=== PATIENT | female | born 1955 | race Caucasian/White ===

== ENCOUNTER 2017-03-25 10:09 | Emergency (ER) | payer OTHER ==
[~2017-03-25] VITALS: Ht 157.5 cm; Wt 52.6 kg
[2017-03-25 11:08] LABS: BLOOD UREA NITROGEN 23 mg/dL (7-18)
[2017-03-25 11:12] LABS: IS PT STATUS REG ER OR PRE ER? YES
[2017-03-25 16:18] VITALS: BP 165/75
== END 2017-03-25 16:22 | disposition home or self-care (01) ==
LOC: ED 13:58
DX: S06.9X1A Unspecified intracranial injury with loss of consciousness of 30 minutes or less, initial encounter (principal); H66.001 Acute suppurative otitis media without spontaneous rupture of ear drum, right ear; E11.9 Type 2 diabetes mellitus without complications; I10 Essential (primary) hypertension; Z87.891 Personal history of nicotine dependence; Z79.899 Other long term (current) drug therapy; W19.XXXA Unspecified fall, initial encounter; Y93.89 Activity, other specified; Y99.8 Other external cause status; Y92.89 Other specified places as the place of occurrence of the external cause
CPT/HCPCS: 36415; 70450; 71020; 80048; 82040; 84484; 85025; 93005; 99285

== ENCOUNTER 2021-07-08 11:39 | Inpatient (IN) | payer MEDICARE, OTHER ==
[~2021-07-08] VITALS: Ht 157.5 cm; Wt 50.6 kg
[~2021-07-08 11:39] MED LIST: ASPI-963 PO; CLOP75TA PO; DENO60DI INJ; EMPA1TAB19 PO; ESCI10TA97 PO; FENO135C4 PO; IRBE300T8 PO; LAMO100T63 PO; MULT-658 PO; NIFE-7 PO; PRAS50CA PO; SIMV20TA19 PO; SIMV40TA20 PO
--- NOTE | 2021-07-08 13:03 | NUR ---
staff scientist note: Repeat VS taken, no change in pt condition. Pt's VSS.
[2021-07-08] MEDS ORDERED: SODIUM CHLORIDE FLUSH 10ML SYR IVF ONE (13:30)
--- NOTE | 2021-07-08 13:37 | NUR ---
DIRECTOR OF RETAIL MARKETING: PT TO ROOM FROM LOBBY
[2021-07-08 13:47] LABS: BASOPHILS % (AUTO) 1 % (0-1); EOSINOPHILS % (AUTO) 0 % (1-7); LYMPHOCYTES % (AUTO) 11 % (22-44); MEAN CORPUSCULAR HEMOGLOBIN 30.8 pg (27.0-34.8); MEAN CORPUSCULAR HGB CONC 33.2 g/dL (32.4-35.8); MEAN PLATELET VOLUME 8.8 fL (7.4-10.4); MONOCYTES % (AUTO) 6 % (2-9); NEUTROPHILS % (AUTO) 81 % (42-75); PLATELET COUNT 276 x10^3/uL (130-400); RED BLOOD COUNT 4.91 x10^6/uL (3.82-5.3); RED CELL DISTRIBUTION WIDTH 13.2 % (9.6-15.2)
[2021-07-08 13:48] LABS: CHLORIDE 107 mmol/L (98-107)
[2021-07-08 13:59] LABS: ALANINE AMINOTRANSFERASE 17 U/L (12-78); ALBUMIN 3.9 g/dL (3.4-5.0); ALKALINE PHOSPHATASE 46 U/L (45-117); ANION GAP 8 mmol/L (5-15); BILIRUBIN,TOTAL 0.5 mg/dL (0.2-1.0); CALCIUM 9.3 mg/dL (8.5-10.1); CREATININE 1.94 mg/dL (0.55-1.02); TOTAL PROTEIN 7.6 g/dL (6.4-8.2)
--- NOTE | 2021-07-08 14:00 | NUR ---
CONTACT WITH PT, 66 YR OLD FEMALE HERE WITH C/O "CRAMPING PAUL LEGS" HAD PLAQUE REMOVAL IN MAY HAS WELL HEALED SCAR IN LEFT GROIN. IV PLACED. CT TO BE NOTIFIED OF PLACEMENT. PT PROVIDED WITH WARM BLANKET. NO OTHER NEEDS EXPRESSED AT THIS TIME.
--- NOTE | 2021-07-08 14:11 | NUR ---
DR SALDAÑA AT BEDSIDE TO RAQUEL PT
--- NOTE | 2021-07-08 15:05 | NUR ---
PT TO CT
[2021-07-08] MEDS ORDERED: OMNIPAQUE 350 MG/ML, 100ML BOTTLE ONE (15:29)
--- NOTE | 2021-07-08 15:35 | NUR ---
IV FLUIDS INFUSING ORDERED. NO ACUTE DISTRESS NOTED. PTS AT BEDSIDE. AWAITING TEST RESULTS. NO NEEDS EXPRESSED AT THIS TIME.
[2021-07-08] MEDS ORDERED: SODIUM CHLORIDE 0.9% 1,000ML IVBOLUS ONE (16:00)
[2021-07-08] MEDS ORDERED: SODIUM CHLORIDE 0.9% 1,000 ML IV ONE ×2 (16:00→17:30)
--- NOTE | 2021-07-08 16:22 | NUR ---
DR STREETER AT BEDSIDE TO EVAL PT
--- NOTE | 2021-07-08 17:02 | NUR ---
EKG IN PROCESS. NO CHANGE IN PT CONDITION NOTED.
[2021-07-08] MEDS ORDERED: ASPIRIN 81 MG TABLET CHEW ONE (17:06)
--- NOTE | 2021-07-08 17:21 | NUR ---
PT AMB TO BR, GAIT STEADY. IV FLUIDS STARTED ORDERED. PT SWABBED FOR PCR COVID AND WALKED TO LAB. PT AND PTS HUSBANAD AWARE OF TO BE INPATIENT. NO NEEDS A THIS TIME.
[2021-07-08] MEDS ORDERED: HEPARIN 5,000 UNITS/ML, 1ML IV ONE (17:30)
[2021-07-08] MEDS ORDERED: [UNRECOGNIZED DRUG - OTHER] PO (17:30)
[2021-07-08] MEDS ORDERED: HEPARIN 25,000 UNITS/250ML PMX 250 ML IV PRN (17:30)
[2021-07-08] MEDS ORDERED: HEPARIN 5,000 UNITS/ML, 1ML IV PRN (17:30)
[2021-07-08] MEDS ORDERED: SODIUM CHLORIDE FLUSH 10ML SYR IVF PRN (17:30)
[2021-07-08] MEDS ORDERED: HEPARIN 25,000 UNITS/250ML PMX 250 ML ONE (17:40)
[2021-07-08] MEDS ORDERED: HEPARIN 5,000 UNITS/ML, 1ML ONE (17:40)
--- NOTE | 2021-07-08 17:55 | NUR ---
IV HEPARIN STARTE ORDERED. PT EDUCATED ON HEPARIN, RISK OF BLEEDING AND BLOOD DRAWS. UNDERSTANDING VERBALIZED.
[2021-07-08] MEDS ORDERED: ASPIRIN 81 MG TABLET CHEW PO ONE (18:00)
--- NOTE | 2021-07-08 18:32 | NUR ---
ATTEMPT TO CALL REPORT, FLOOR RN TO RETURN CALL
--- NOTE | 2021-07-08 19:18 | NUR ---
REPORT TO PAM MCKEON
--- NOTE | 2021-07-08 19:55 | NUR ---
PT RESTING COMFORTABLY, AND PTS HAS ARRIVED WITH FOOD FOR THE PT. PT TO BE ADMITTED UPSTAIRS, BUT THE ROOM REMAINS DIRTY AT THIS TIME. RECEIVED ROOM AT 1816 TIME. PT EATING WITHOUT ISSUE AND SAYS SHE FEELS BETTER. PIV X2 INTACT, NO SWELLING, REDNESS AND IS SECURE.
[2021-07-08] MEDS ORDERED: DOCUSATE 100 MG CAPSULE PO PRN (20:30)
[2021-07-08] MEDS ORDERED: LIDODERM 5% PATCH TD PRN (20:30)
[2021-07-08] MEDS ORDERED: MELATONIN 5 MG TABLET PO PRN (20:30)
[2021-07-08] MEDS ORDERED: ACETAMINOPHEN 325 MG TABLET PO PRN (20:30)
[2021-07-08] MEDS ORDERED: HYDROcodone/APAP 5/325 TABLET PO PRN (20:30)
[2021-07-08] MEDS ORDERED: ONDANSETRON 2MG/ML, 2ML IVPush PRN (20:30)
[2021-07-08 21:10] VITALS: BP 149/81
--- NOTE | 2021-07-08 21:17 | NUR ---
REPORT AND CARE TO FLOOR RN AND PT TRANSPORTED TO FLOOR ON MONITOR WITH TECH AT BEDSIDE. IV SITES X2 INTACT, NO REDNESS OR SWELLING NOTED. REPORT AND CARE TO DARIUS MCKEON.
[2021-07-09] MEDS ORDERED: SIMVASTATIN 40 MG TABLET PO SCH
[2021-07-09] MEDS ORDERED: FENOFIBRATE 145 MG TABLET PO SCH
[2021-07-09] MEDS ORDERED: IRBESARTAN 300 MG TABLET PO SCH
[2021-07-09 01:41] VITALS: BP 130/79
[2021-07-09] MEDS: INSULIN LISPRO 100 UNITS/ML, PEN SQ-INSULIN SCH ×3 (06:49→16:13)
[2021-07-09 07:35] VITALS: BP 160/76
[2021-07-09 07:35] LABS: BASOPHILS % (AUTO) 1 % (0-1); EOSINOPHILS % (AUTO) 1 % (1-7); LYMPHOCYTES % (AUTO) 18 % (22-44); MEAN CORPUSCULAR HEMOGLOBIN 31.9 pg (27.0-34.8); MEAN CORPUSCULAR HGB CONC 34.1 g/dL (32.4-35.8); MEAN PLATELET VOLUME 9.1 fL (7.4-10.4); MONOCYTES % (AUTO) 7 % (2-9); NEUTROPHILS % (AUTO) 73 % (42-75); PLATELET COUNT 210 x10^3/uL (130-400); RED BLOOD COUNT 4.45 x10^6/uL (3.82-5.3); RED CELL DISTRIBUTION WIDTH 13.3 % (9.6-15.2)
[2021-07-09 07:37] LABS: CHLORIDE 110 mmol/L (98-107)
[2021-07-09 07:42] LABS: ANION GAP 7 mmol/L (5-15); CALCIUM 8.6 mg/dL (8.5-10.1); CREATININE 1.25 mg/dL (0.55-1.02)
[2021-07-09 07:43] LABS: INTERNATIONAL NORMALIZED RATIO 1.03 (0.93-1.1)
[2021-07-09] MEDS ORDERED: ESCITALOPRAM 10MG TABLET PO SCH (09:00)
[2021-07-09] MEDS ORDERED: MULTIVITAMIN 1 TABLET PO SCH (09:00)
[2021-07-09] MEDS ORDERED: CLOPIDOGREL 75 MG TABLET PO SCH (09:00)
[2021-07-09] MEDS ORDERED: LAMOTRIGINE 100 MG TABLET PO SCH (09:00)
[2021-07-09] MEDS ORDERED: niFEDipine ER 30 MG TABLET.ER PO SCH (09:00)
[2021-07-09] MEDS ORDERED: ASPIRIN 81 MG TABLET EC PO SCH (09:00)
[2021-07-09 12:50] VITALS: BP 127/77
[2021-07-09] MEDS ORDERED: ENOX60SY4 SC (15:45)
[2021-07-09 16:37] VITALS: BP 149/67
== END 2021-07-09 16:54 | disposition home or self-care (01) | DRG 299 ==
LOC: ED 17:30 → EDIP 20:19 → 4NE 21:03
PROVIDERS: ADMIT Internal Medicine; ATTEND Hospitalist
DX: E11.51 Type 2 diabetes mellitus with diabetic peripheral angiopathy without gangrene (principal); N17.0 Acute kidney failure with tubular necrosis; I74.3 Embolism and thrombosis of arteries of the lower extremities; I77.1 Stricture of artery; E11.22 Type 2 diabetes mellitus with diabetic chronic kidney disease; I12.9 Hypertensive chronic kidney disease with stage 1 through stage 4 chronic kidney disease, or unspecified chronic kidney disease; N18.30 Chronic kidney disease, stage 3 unspecified; Z20.822 Contact with and (suspected) exposure to COVID-19; Z87.891 Personal history of nicotine dependence; Z82.49 Family history of ischemic heart disease and other diseases of the circulatory system
CPT/HCPCS: 36415; 75635; 80048; 80053; 82962; 83690; 85025; 85520; 85610; 85730; 87635; 93005; 93970; 96360; 96361; 99285; G0378; J1644; Q9967; J1815; J7030

== ENCOUNTER 2021-07-15 05:34 | Inpatient (IN) | payer MEDICARE, OTHER ==
[~2021-07-15] VITALS: Ht 157.5 cm; Wt 56.8 kg
[~2021-07-15 05:34] MED LIST changes: +ENOX60SY4 SC; +[UNRECOGNIZED DRUG - OTHER] PO
[2021-07-15 06:29] VITALS: BP 155/72
[2021-07-15] MEDS ORDERED: CHLORHEXIDINE 15 ML UDC PO ONE (06:30)
[2021-07-15] MEDS ORDERED: LACTATED RINGERS 1,000 ML IV SCH (06:30)
[2021-07-15] MEDS ORDERED: SIMV40TA20 PO (06:49)
[2021-07-15] MEDS ORDERED: ENOX40SY4 SQ (06:49)
[2021-07-15] MEDS ORDERED: PROTAMINE SULFATE 10 MG/ML, 5ML ONE (06:50)
[2021-07-15] MEDS ORDERED: HEPARIN 1,000 UNITS/ML, 30ML ONE (06:50)
[2021-07-15] MEDS ORDERED: CLOP75TA PO (06:55)
[2021-07-15] MEDS ORDERED: PROPOFOL 50 ML ONE (07:26)
[2021-07-15] MEDS ORDERED: FENTANYL PF 250 MCG/5ML ONE (07:26)
[2021-07-15] MEDS ORDERED: MIDAZOLAM 1 MG/ML, 2ML ONE (07:26)
[2021-07-15] MEDS ORDERED: morphine SULFATE 10 MG/ML, 1ML IVPush PRN (08:30)
[2021-07-15] MEDS ORDERED: OXYcodone 5 MG/5 ML ORAL.SOL UDC PO PRN (08:30)
[2021-07-15] MEDS ORDERED: DIPHENHYDRAMINE 50 MG/ML, 1ML IVPush PRN (08:30)
[2021-07-15] MEDS ORDERED: DIAZEPAM 5 MG/ML, 2ML IVPush PRN (08:30)
[2021-07-15] MEDS ORDERED: EPHEDRINE 50 MG/ML, 1ML IVPush PRN (08:30)
[2021-07-15] MEDS ORDERED: ACETAMINOPHEN 325 MG TABLET PO PRN (08:30)
[2021-07-15] MEDS ORDERED: LABETALOL 5MG/ML, 20ML IV PRN (08:30)
[2021-07-15] MEDS ORDERED: ONDANSETRON 2MG/ML, 2ML IVPush PRN (08:30)
[2021-07-15] MEDS ORDERED: PROMETHAZINE 25 MG/ML, 1ML IVPush PRN (08:30)
[2021-07-15] MEDS ORDERED: EPHEDRINE 50 MG/ML, 1ML IM PRN (08:30)
[2021-07-15] MEDS ORDERED: ONDANSETRON 2MG/ML, 2ML ONE (09:00)
[2021-07-15] MEDS ORDERED: ROCURONIUM 10MG/ML,5ML ONE (09:00)
[2021-07-15] MEDS ORDERED: VISIPAQUE 270 MG/ML, 50ML BOTTLE ONE (09:25)
[2021-07-15] MEDS ORDERED: CEFAZOLIN 1,000 MG ONE ×2 (13:04)
[2021-07-15] MEDS ORDERED: EPHEDRINE 50 MG/ML, 1ML ONE (13:33)
[2021-07-15] MEDS ORDERED: FENTANYL PF 100 MCG/2ML ONE (14:04)
[2021-07-15] MEDS: FENTANYL PF 100 MCG/2ML IV PRN ×3 (14:06→14:50)
[2021-07-15] MEDS ORDERED: ACETAMINOPHEN 650 MG/20.3 ML UDC PO PRN (14:30)
[2021-07-15] MEDS ORDERED: PROMETHAZINE 25 MG/ML, 1ML IM PRN (14:30)
[2021-07-15] MEDS ORDERED: morphine SULFATE 10 MG/ML, 1ML IV PRN (14:30)
[2021-07-15] MEDS ORDERED: ACETAMINOPHEN 650 MG/20.3 ML UDC ONE (14:33)
[2021-07-15] MEDS: LACTATED RINGERS 1,000 ML IV SCH (17:10)
[2021-07-15] MEDS: IRBESARTAN 300 MG TABLET PO SCH (19:04)
[2021-07-15] MEDS: CEFAZOLIN PMX 1GM/50ML 50 ML IVPB SCH (19:09)
[2021-07-15] MEDS ORDERED: SODIUM CHLORIDE 0.9%, 500ML IVBOLUS ONE (19:30)
[2021-07-15 20:29] VITALS: BP 104/52
[2021-07-15] MEDS: SIMVASTATIN 40 MG TABLET PO SCH (22:11)
[2021-07-16 00:03] VITALS: BP 97/56
[2021-07-16] MEDS: CEFAZOLIN PMX 1GM/50ML 50 ML IVPB SCH (03:29)
[2021-07-16] MEDS: LACTATED RINGERS 1,000 ML IV SCH ×4 (03:29→23:03)
[2021-07-16 03:50] VITALS: BP 105/56
[2021-07-16 05:21] LABS: BASOPHILS % (AUTO) 0 % (0-1); EOSINOPHILS % (AUTO) 0 % (1-7); LYMPHOCYTES % (AUTO) 16 % (22-44); MEAN CORPUSCULAR HEMOGLOBIN 31.4 pg (27.0-34.8); MEAN CORPUSCULAR HGB CONC 33.3 g/dL (32.4-35.8); MEAN PLATELET VOLUME 9.1 fL (7.4-10.4); MONOCYTES % (AUTO) 6 % (2-9); NEUTROPHILS % (AUTO) 77 % (42-75); PLATELET COUNT 174 x10^3/uL (130-400); RED BLOOD COUNT 2.81 x10^6/uL (3.82-5.3); RED CELL DISTRIBUTION WIDTH 13.4 % (9.6-15.2)
[2021-07-16 05:43] LABS: ALBUMIN 2.5 g/dL (3.4-5.0); ANION GAP 4 mmol/L (5-15); CALCIUM 8.1 mg/dL (8.5-10.1); CHLORIDE 113 mmol/L (98-107)
[2021-07-16 07:25] VITALS: BP 108/65
[2021-07-16] MEDS: CLOPIDOGREL 75 MG TABLET PO SCH (09:00)
[2021-07-16] MEDS ORDERED: ENOXAPARIN 40 MG/0.4 ML SQ SCH (09:00)
[2021-07-16] MEDS: MULTIVITAMIN 1 TABLET PO SCH (09:00)
[2021-07-16] MEDS: ESCITALOPRAM 10MG TABLET PO SCH (09:01)
[2021-07-16] MEDS: niFEDipine ER 30 MG TABLET.ER PO SCH (09:01)
[2021-07-16] MEDS: LAMOTRIGINE 100 MG TABLET PO SCH (09:02)
[2021-07-16] MEDS: OMEGA-3/FISH OIL CAPSULE PO SCH (09:02)
[2021-07-16] MEDS: ASPIRIN 81 MG TABLET EC PO SCH (09:02)
[2021-07-16] MEDS ORDERED: ARTIFICIAL TEARS 15 DROP/ML BOTTLE EACHEYE PRN (10:30)
[2021-07-16 13:14] VITALS: BP 121/58
[2021-07-16 20:48] VITALS: BP 100/50
[2021-07-16] MEDS: IRBESARTAN 300 MG TABLET PO SCH (21:00)
[2021-07-16] MEDS: SIMVASTATIN 40 MG TABLET PO SCH (21:02)
[2021-07-17 01:22] VITALS: BP 95/47
[2021-07-17 06:25] LABS: BASOPHILS % (AUTO) 0 % (0-1); EOSINOPHILS % (AUTO) 1 % (1-7); LYMPHOCYTES % (AUTO) 22 % (22-44); MEAN CORPUSCULAR HEMOGLOBIN 31.7 pg (27.0-34.8); MEAN CORPUSCULAR HGB CONC 33.6 g/dL (32.4-35.8); MEAN PLATELET VOLUME 9.6 fL (7.4-10.4); MONOCYTES % (AUTO) 9 % (2-9); NEUTROPHILS % (AUTO) 67 % (42-75); PLATELET COUNT 151 x10^3/uL (130-400); RED BLOOD COUNT 2.59 x10^6/uL (3.82-5.3); RED CELL DISTRIBUTION WIDTH 13.4 % (9.6-15.2)
[2021-07-17 06:30] LABS: ANION GAP 2 mmol/L (5-15); CALCIUM 7.9 mg/dL (8.5-10.1); CHLORIDE 111 mmol/L (98-107)
[2021-07-17 06:32] LABS: CREATININE 1.36 mg/dL (0.55-1.02)
[2021-07-17 07:39] VITALS: BP 116/46
[2021-07-17] MEDS ORDERED: ENOXAPARIN 30 MG/0.3 ML SQ SCH (09:00)
[2021-07-17] MEDS: LACTATED RINGERS 1,000 ML IV SCH (09:00)
[2021-07-17] MEDS: OMEGA-3/FISH OIL CAPSULE PO SCH (09:38)
[2021-07-17] MEDS: niFEDipine ER 30 MG TABLET.ER PO SCH (09:38)
[2021-07-17] MEDS: MULTIVITAMIN 1 TABLET PO SCH (09:38)
[2021-07-17] MEDS: ESCITALOPRAM 10MG TABLET PO SCH (09:39)
[2021-07-17] MEDS: CLOPIDOGREL 75 MG TABLET PO SCH (09:39)
[2021-07-17] MEDS: LAMOTRIGINE 100 MG TABLET PO SCH (09:39)
[2021-07-17] MEDS: ASPIRIN 81 MG TABLET EC PO SCH (09:39)
[2021-07-17] MEDS ORDERED: HYDR-2214 PO (10:44)
[2021-07-17 12:29] VITALS: BP 124/72
== END 2021-07-17 12:37 | disposition home or self-care (01) | DRG 253 ==
LOC: ORIP 05:34 → EDSTATUS 07:30 → 4NE 15:10
PROVIDERS: ADMIT Surgery; ATTEND Surgery
PROC: 04CL0ZZ Extirpation of Matter from Left Femoral Artery, Open Approach (ICD-10-PCS; 2021-07-15)
PROC: 047J3DZ Dilation of Left External Iliac Artery with Intraluminal Device, Percutaneous Approach (ICD-10-PCS; 2021-07-15)
PROC: 041L0JJ Bypass Left Femoral Artery to Left Femoral Artery with Synthetic Substitute, Open Approach (ICD-10-PCS; principal; 2021-07-15 07:30)
DX: I70.222 Atherosclerosis of native arteries of extremities with rest pain, left leg (principal); I74.3 Embolism and thrombosis of arteries of the lower extremities; E11.22 Type 2 diabetes mellitus with diabetic chronic kidney disease; E11.51 Type 2 diabetes mellitus with diabetic peripheral angiopathy without gangrene; E78.5 Hyperlipidemia, unspecified; N18.30 Chronic kidney disease, stage 3 unspecified; I12.9 Hypertensive chronic kidney disease with stage 1 through stage 4 chronic kidney disease, or unspecified chronic kidney disease; Z87.891 Personal history of nicotine dependence
CPT/HCPCS: 36415; 75710; 80048; 82040; 82962; 85025; 86850; 86900; C1729; C1894; G0378; J0690; J1644; J1650; J2250; J2405; J2704; J2720; J3010; Q9966; C1757; C1768; J7040; J7120